=== PATIENT | female | born 1975 | race Caucasian/White ===

== ENCOUNTER → 2018-06-20 11:23 | Outpatient (CLI) | payer MEDICARE ==
[2014-10-01 09:02] VITALS: BMI 41.6
[~2018-06-20 11:23] MED LIST: AMBIEN5 MG PO; CELEXA40 MG PO; NORCO 10/325 TA1 TA1 PO
[2018-06-20 12:57] LABS: CALC OSMOLALITY 290 mosm/kg (275-300); CALCIUM 8.2 mg/dL (8.5-10.1); CARBON DIOXIDE 32.9 mmol/L (21.0-32.0); CHLORIDE - SERUM 102 mmol/L (98-107); CREATININE - SERUM 0.8 mg/dL (0.6-1.3); SODIUM 142 mmol/L (136-145); UREA NITROGEN 22 mg/dL (7-18); eGFR NON AFRICAN AMERICAN 82 mL/min (90-120)
[2018-06-20 12:59] LABS: GLUCOSE 194 mg/dL (74-106)
== END | disposition home or self-care (01) ==
LOC: D.LABREF 11:23
PROVIDERS: Family Medicine
DX: L03.116 Cellulitis of left lower limb (principal); I50.9 Heart failure, unspecified

== ENCOUNTER → 2018-10-04 11:23 | Outpatient (CLI) | payer MEDICARE ==
[2014-10-01 09:02] VITALS: BMI 41.6
[2018-10-04 14:32] LABS: ALBUMIN 3.7 g/dL (3.4-5.0); ALKALINE PHOSPHATASE 129 U/L (46-116); ALT (SGPT) 51 U/L (10-68); BILIRUBIN - TOTAL 0.35 mg/dL (0.2-1.3); CALC OSMOLALITY 283 mosm/kg (275-300); CALCIUM 8.6 mg/dL (8.5-10.1); CARBON DIOXIDE 35.9 mmol/L (21.0-32.0); CHLORIDE - SERUM 98 mmol/L (98-107); CREATININE - SERUM 0.8 mg/dL (0.6-1.3); GLUCOSE 119 mg/dL (74-106); PROTEIN - SERUM 7.7 g/dL (6.4-8.2); SODIUM 141 mmol/L (136-145); UREA NITROGEN 19 mg/dL (7-18); eGFR NON AFRICAN AMERICAN 82 mL/min (90-120)
== END | disposition home or self-care (01) ==
LOC: D.LABREF 11:23
PROVIDERS: ATTEND Family Medicine
DX: I50.9 Heart failure, unspecified (principal)